=== PATIENT | female | born 2000 | race Caucasian/White ===

== ENCOUNTER → 2024-07-08 11:10 | Emergency (ER) | payer OTHER, SELFPAY ==
[2024-07-08 11:12] VITALS: BP 139/94
[2024-07-08 12:18] VITALS: BMI 23.1
--- NOTE | 2024-07-08 14:05 | ED.GENMED ---
History of Present Illness
General
Chief Complaint: Bowel Problem
Source: patient
Exam Limitations: none
Time Seen by Provider: 07/08/24 13:20
Nursing documentation reviewed up to this point in time: agreed with
History of Present Illness
History of Present Illness:
pt is a 23 y/o F
]h/o chronci constipation issues x 4 years
has never seen GI
has insurance now but hasn't made appt
here with feeling constipated x 6 days
last normal BM 6 days ago
3 days ago had small bm
tired doculax x 1 last night
and sterile water enema this morning
has some rectal pressure
no significant abd pain
no bleeding
no rectal FB or intercourse
no nausea/vomiting
Past History
Past History
ED Past Medical History: Other (constipation)
ED Past Surgical History: None
Social History
Tobacco: Non-smoker
Alcohol: None
Drug: None
Personal: Single
Review of Systems
Review of Systems
Allergies reviewed?: Yes
All Other Systems: Not applicable
Phy Exam
Physical Exam
Physical Exam:
GENERAL: Alert , in no apparent distress
EYE: pupils equal and reactive
NECK: Supple
ENT: o/p clr, mmm.
CARDIAC: Regular rate and rhythm .
LUNGS: Clear breath sounds bilaterally, no acute respiratory distress, no wheezes/rales/rhonchi
ABDOMEN: Soft, without focal tenderness, no r/g, no cvat, normal bowel sounds
nondistended
rectum: no exertnal hemorrhoids, no obvious fissure
internal hemorrhoid palpated; no bleeding
no fecal impaction
SKIN: Warm and dry, skin intact.
PSYCH: Normal and appropriate interaction.
Course
Vital Signs
Initial and Last Documented VS:
Initial Vital Signs
Temp Pulse Resp BP Pulse Ox
36.8 C 89 16 139/94 100
07/08/24 11:12 07/08/24 11:12 07/08/24 11:12 07/08/24 11:12 07/08/24 11:12
Last Documented Vital Signs
Temp Pulse Resp BP Pulse Ox
36.8 C 89 16 139/94 100
07/08/24 11:12 07/08/24 11:12 07/08/24 11:12 07/08/24 11:12 07/08/24 11:12
MDM/Problems Addressed
Differential Diagnosis Includes:
consiptaiton, hemorrhoid, colitis, IBD, rectal infection
MDM/Problems Addressed:
23 y/o F
chronic constipation
unknwon cause
has never had colonoscopy
here with rectal deiscomfrt and sensation of needing to defecate for a few days
no relief with 1 dose doculax and an enema
no abd pain other than mild discomfort soemtimes
no nausea/vmotiing/fever/rectal fb/rectal discharge, bleeding
well appearing
soft abd with active bowel sounds
bladder not palpable
rectal with tenderness, i believe pt has 1 cm internal hemorrhoid, no bleeding, no fecal impation; no obvious ext hemrrhoid or fissure
offered xray to see how much stool
concsidered otehr differential possiblities like colitis, rectal abscess, IBD;
she is not having mucus or discharge, bleeding, or pain; no recent rectal fb; no vomiting; no fever;
pt declined the xray
discussed that she needs to see GI
will try prep h suppositories\\metamucil
miralax
*Critical Care Note
Total Time (30-74mins, 75-104mins- exclusive of procedures): Not Applicable
ED Attending Note
-
Portions of this chart may have been created with voice recognition software.� Occasional wrong word or��sound alike� substitutions may have occurred due to the inherent limitations of voice recognition software.
Discharge Plan
Departure
Patient Disposition: Home (Routine Discharge)
Date of Disposition: 07/08/24
Time of Disposition: 14:18
Patient with high blood pressure during this ER visit?: No
Condition: Fair
Covid-19: Not Applicable
Discharge Problem:
Internal hemorrhoid, Constipation
Instructions: Constipation, Adult (DC), Hemorrhoids ED, How to take a sitz bath
Prescriptions:
New
Preparation H (pe) 0.25 % suppository
1 supp AK BID PRN (Reason: hemorrhoids) 5 Days Qty: 12 0RF
Referrals:
Alicia Verdugo MD [Active] - Follow up in 5-7 days (gi)
Alejandra Key CRNP [Family Provider] -
Activity Restrictions/Additional Instructions:
Use Metamucil 1 heaping tablespoon in 8 ounces of water once a day on a regular basis to prevent constipation. To treat your constipation try MiraLAX twice a day for 2 to 3 days in a row. Use Preparation H suppositories twice a day for 3 to 5 days
to help with the hemorrhoid. Soak in the tub for 10 minutes couple of times a day.
You need to see a GI doctor. Please call for an appointment. Return for any concerns
Interventions
Interventions:
*Risk Screen - Suicide Last Done: 07/08/24 11:12
*General Assessment Last Done: 07/08/24 11:12
*Neglect/Abuse Screening Last Done: 07/08/24 11:12
CX-Owuezx-Pqneuqckzj Assessment Last Done: 07/08/24 12:18
Discharge Date and Time
Print Language: MACEDONIAN
== END | disposition home or self-care (01) ==
LOC: EMR 11:10
PROVIDERS: EMERGENCY PHYSICIAN Emergency Medicine; FAMILY PHYSICIAN Nurse Practitioner Primary Care
DX: K64.8 Other hemorrhoids (principal); K59.09 Other constipation; K58.9 Irritable bowel syndrome, unspecified
CPT/HCPCS: 99283